=== PATIENT | male | born 1975 | race Two or more races ===

== ENCOUNTER 2022-10-15 20:01 | Emergency (ER) | payer MEDICAID, OTHER ==
[~2022-10-15] VITALS: Ht 170.2 cm; Wt 98.4 kg
[2022-10-15 22:15] VITALS: BP 131/77; PULSE 104; RESP 16; TEMP 97.9; O2SAT 96
[2022-10-15] MEDS ORDERED: HYDROcodone-ACET 5/325MG TAB PO ONE (22:15)
[2022-10-15] MEDS ORDERED: HYDR-4902 PO (22:17)
== END 2022-10-15 23:42 | disposition home or self-care (01) ==
LOC: ER 20:01
DX: S92.355A Nondisplaced fracture of fifth metatarsal bone, left foot, initial encounter for closed fracture (principal); S83.92XA Sprain of unspecified site of left knee, initial encounter; S93.402A Sprain of unspecified ligament of left ankle, initial encounter; S80.12XA Contusion of left lower leg, initial encounter; M77.32 Calcaneal spur, left foot; W11.XXXA Fall on and from ladder, initial encounter; Y93.89 Activity, other specified; Y92.89 Other specified places as the place of occurrence of the external cause; Y99.8 Other external cause status
CPT/HCPCS: 29515; 73590; 73630

== ENCOUNTER 2024-08-18 09:53 | Emergency (ER) | payer MEDICAID ==
[~2024-08-18] VITALS: Ht 170.2 cm; Wt 100.0 kg
[~2024-08-18 09:53] MED LIST: HYDR-4902 PO
--- NOTE | 2024-08-18 10:23 | ED.PDOC ---
History of present illness HPI Comments 48 y.o male presents to the ED for a chief complaint of numbness to bilateral toes that started a couple months ago but now is worsening and radiating to mid foot. Patient does have a history of DM but denies taking any medication. Patient reports checking his blood glucose when he visits his father who has a glucometer and states levels are around the 400-500's. Upon ED arrival, patient's accucheck was 255, which he states is probably because he has not eaten today. Patient also notes increased urination at night with intermittent episodes of a posterior headache. He denies any nausea, vomiting, chest pain, SOB, abdominal pain, or vision changes. Chief Complaint: Lower Extremity Time Seen by MD: 10:09 History of present illness: Nurses Notes, Medications, Allergies Allergies: Coded Allergies: NO KNOWN ALLERGIES (Unverified , 10/15/22) Home Meds Active Scripts Hydrocodone-Acetaminophen (Hydrocodone Bitartrate/AC 5-325 mg) 1 Tab Tab, 1 TAB PO Q6HR, #10 TAB as needed for pain Prov:SARAH JAY [employer] 10/15/22 Information Source: Patient Mode of Arrival: Ambulatory Timing: Months Duration: Since onset [place]: Other History of: Diabetes, Frequent hyperglycemic Modifying factors: Nothing Associated signs and symptoms: Other Past Medical History PAST MEDICAL HISTORY: DM Surgical History: Denies all surgeries Family History Family History: Reviewed,noncontributory to illness Social History Smoker: Non-Smoker Alcohol: Denies ETOH Use Drugs: Denies Drug Use Lives In: Home Constitutional: denies: chills, diaphoresis, fatigue, fever, malaise, sweats, weakness, others EENTM: denies: blurred vision, double vision, ear bleeding, ear discharge, ear drainage, ear pain, ear ringing, eye pain, eye redness, hearing loss, mouth pain, mouth swelling, nasal discharge, nose bleeding, nose congestion, nose pain, photophobia, tearing, throat pain, throat swelling, voice changes, others Respiratory: denies: cough, hemoptysis, orthopnea, SOB at rest, shortness of breath, SOB with excertion, stridor, wheezing, others Cardiovascular: denies: chest pain, dizzy spells, diaphoresis, Dyspnea on exertion, edema, irregular heart beat, left arm pain, lightheadedness, palpi tations, PND, syncope, others Gastrointestinal: denies: abdomen distended, abdominal pain, blood streaked bowels, constipated, diarrhea, dysphagia, difficulty swallowing, hematemesis, melena, nausea, poor appetite, poor fluid intake, rectal bleeding, rectal pain, vomiting, others Genitourinary: denies: burning, dysuria, flank pain, frequency, hematuria, incontinence, penile discharge, penile sore, pain, testicle pain, testicle swelling, urgency, others Neurological: reports: numbness (bilateral toes /feet ); denies: dizziness, fainting, headache, left sided numbness, left sided weakness, paresthesia, pre- existing deficit, right sided numbness, right sided weakness, seizure, speech problems, tingling, tremors, weakness, others Musculoskeletal: denies: back pain, gout, joint pain, joint swelling, muscle pain, muscle stiffness, neck pain, others Integumetry: denies: bruises, change in color, change in hair/nails, dryness, laceration, lesions, lumps, rash, wounds, others Allergic/Immunocompromised: denies: Difficulty Healing, Frequent Infections, Hives, Itching, others Hematologic/Lymphatic: denies: anemia, blood clots, easy bleeding, easy bruising, swollen glands, others Endocrine: reports: excessive urination; denies: excessive hunger, excessive sweating, excessive thirst, flushing, intolerance to cold, intolerance to heat, unexplained weight gain, unexplained weight loss, others Psychiatric: denies: anxiety, bipolar disorder, depression, hopeless, panic disorder, schizophrenia, sleepless, suicidal, others All Other Systems: Reviewed and Negative Physical Exam General Appearance: No Apparent Distress HEENT: Other (Pupils and face symmetric. Moist mucous membranes.) Neck: Full Range of Motion, Normal Inspection Respiratory: Lungs Clear, No Accessory Muscle Use, No Respiratory Distress, Normal Breath Sounds Cardiovascular: No Edema, No JVD, Regular Rate/Rhythm Breast Exam: Deferred Gastrointestinal: Non Tender, Soft Genitalia: Deferred Pelvic: Deferred Rectal: Deferred Extremities: Normal inspection, Normal range of motion, Non-tender, No pedal edema Neurologic: Alert (Oriented x4), Normal Affect, Normal Mood, Other (Ambulatory. Subjective diminished light touch sensation bilateral toes extending to distal foot) Cerebellar Function: NOT DONE Reflexes: NOT DONE Skin: Dry, Normal Color, Warm Lymphatic: NOT DONE Was a procedure done? Was a procedure done?: No Differential Diagnosis (DM) Differential Diagnosis: Dehydration, Electrolyte Abnormality, Hyperglycemia, Hy perosmolar State, UTI Other Differential Diagnosis Neuropathy X-Ray, Labs, Meds, VS Vital Signs Date Time Temp Pulse Resp B/P (MAP) Pulse Ox O2 Delivery O2 Flow Rate FiO2 08/18/24 11:09 98.0 71 13 131/84 (100) 96 98.0 08/18/24 10:56 Room Air* 0 21 08/18/24 10:05 98.0 79 18 144/94 (111) 97 98.0 Lab Test 08/18/24 10:50 08/18/24 10:25 08/18/24 10:04 Range/Units Urine Color Light-yellow Yellow Urine Clarity Clear Clear Urine pH 5.0 5.0-9.0 Urine Specific [place] 1.025 1.001-1.035 Urine Protein Negative Negative Urine Ketones Negative Negative Urine Blood Negative Negative /uL Urine Nitrite Negative Negative Urine Bilirubin Negative Negative Urine Urobilinogen Normal Negative mg/dL Urine Leukocyte Esterase Negative Negative /uL Urine RBC None seen 0 - 3 /hpf Urine Microscopic WBC 1 0-3 /HPF Urine Squamous Epithelial Cells None seen <5 /hpf Urine Bacteria None seen None Seen /hpf Urine Glucose 4+ H Normal mg/dL White Blood Count 4.6 4.4-10.8 10^3/uL Red Blood Count 5.73 4.5-5.90 10^6/uL Hemoglobin 16.3 13.5-17.5 g/dL Hematocrit 47.8 41.0-53.0 % Mean Corpuscular Volume 83.4 80.0-100.0 fL Mean Corpuscular Hemoglobin 28.4 28.0-32.0 pg Mean Corpuscular Hemoglobin Concent 34.1 32.0-36.0 g/dL Red Cell Distribution Width 14.3 11.8-14.3 % Platelet Count 252 140-450 10^3/uL Mean Platelet Volume 8.5 6.9-10.8 fL Neutrophils (%) (Auto) 62.0 37.0-80.0 % Lymphocytes (%) (Auto) 27.2 10.0-50.0 % Monocytes (%) (Auto) 7.9 0.0-12.0 % Eosinophils (%) (Auto) 2.1 0.0-7.0 % Basophils (%) (Auto) 0.8 0.0-2.0 % Neutrophils # (Auto) 2.9 1.6-8.6 10 ^3/uL Lymphocytes # (Auto) 1.3 0.4-5.4 10 ^3/uL Monocytes # (Auto) 0.4 0-1.3 10 ^3/uL Eosinophils # (Auto) 0.1 0-0.8 10 ^3/uL Basophils # (Auto) 0 0-0.2 10 ^3/uL Nucleated Red Blood Cells 0.3 % Sodium Level 141 136-145 mmol/L Potassium Level 4.4 3.5-5.1 mmol/L Chloride Level 106 98-107 mmol/L Carbon Dioxide Level 27 20-31 mmol/L Anion Gap 8 5-15 Blood Urea Nitrogen 7 L 9-23 mg/dL Creatinine 0.87 0.700-1.30 mg/dL Glomerular Filtration Rate Calc 105 >90 mL/min BUN/Creatinine Ratio 8.0 L 10.0-20.0 Serum Glucose 275 H 74-106 mg/dL Calcium Level 9.5 8.7-10.4 mg/dL POC Glucose 255 H 70-106 mg/dl X-Ray, Labs, Meds, VS Comment 48-year-old male with a history of untreated diabetes presenting complaining of bilateral toe numbness times months Vitals remarkable for BP 144/94 Exam unremarkable except for subjective diminished light touch sensation bilateral toes and distal foot Rhythm strip independently interpreted by me: Sinus rhythm, rate 79, no ectopy. CBC basic metabolic panel unremarkable except for glucose 275. UA positive for 4+ glucose. No acute treatment indicated in the ED. Patient advised regarding workup findings, my impression, treatment plan and the need to establish care with a primary physician for ongoing management of his diabetes. Patient will be provided with an outpatient referral. Rx metformin Time of 1ST Reevaluation: 11:00 Reevaluation 1ST: Unchanged Patient Education/Counseling: Diagnosis, Treatment, Prognosis Family Education/Counseling: No Family Present Departure 1 Departure Time of Disposition: 11:39 Impression: Primary Impression: Hyperglycemia due to diabetes mellitus Additional Impression: Diabetic neuropathy Qualified Codes: E13.49 - Other specified diabetes mellitus with other diabetic neurological complication Disposition: HOME / SELF CARE / HOMELESS Condition: Stable Referrals: DAVIE STOKES MD Additional Instructions: Your blood tests showed your blood glucose (blood sugar) is high. Your kidney function is normal, and your other blood tests are normal. Your urine test showed glucose, which is due to uncontrolled blood sugar. I have prescribed medication for diabetes. Follow-up to establish care with a primary physician in 1-2 days for further evaluation of your diabetes. You have been referred to Dr. Stokes. e-Prescriptions Metformin Hydrochloride (Metformin Hcl) 500 Mg Tab 1 TAB PO BID, #60 TAB 3 Refills Prov: SHANDA BOWIE MD 08/18/24 Discharged With: Self Critical Care Note Critical Care Time?: No Stability Stability form required: No I personally scribed for SHANDA BOWIE MD ([email or web address]) on 08/18/24 at 10:23. Electronically submitted by Eneida Booker ([facility]). SHANDA BOWIE MD Aug 18, 2024 10:23
[2024-08-18 10:44] LABS: Chloride 106 mmol/L (98-107); Potassium 4.4 mmol/L (3.5-5.1); Sodium 141 mmol/L (136-145)
[2024-08-18 10:45] LABS: Anion Gap 8 (5-15); Basophils # (auto) 0 10 ^3/uL (0-0.2); Basophils % (auto) 0.8 % (0.0-2.0); Carbon Dioxide 27 mmol/L (20-31); Eosinophils # (auto) 0.1 10 ^3/uL (0-0.8); Eosinophils % (auto) 2.1 % (0.0-7.0); Hematocrit 47.8 % (41.0-53.0); Hemoglobin 16.3 g/dL (13.5-17.5); Lymphocytes # (auto) 1.3 10 ^3/uL (0.4-5.4); Lymphocytes % (auto) 27.2 % (10.0-50.0); Mean Corpuscular Hemoglobin 28.4 pg (28.0-32.0); Mean Corpuscular Hgb Conc. 34.1 g/dL (32.0-36.0); Mean Corpuscular Volume 83.4 fL (80.0-100.0); Monocytes # (auto) 0.4 10 ^3/uL (0-1.3); Monocytes % (auto) 7.9 % (0.0-12.0); Neutrophils # (auto) 2.9 10 ^3/uL (1.6-8.6); Nucleated Red Blood Cells % 0.3 %; Platelet Count (auto) 252 10^3/uL (140-450); Red Blood Cells 5.73 10^6/uL (4.5-5.90); Red Cell Distribution Width 14.3 % (11.8-14.3); White Blood Cell 4.6 10^3/uL (4.4-10.8)
[2024-08-18 10:46] LABS: Calcium 9.5 mg/dL (8.7-10.4)
[2024-08-18 10:50] LABS: Blood Urea Nitrogen 7 mg/dL (9-23); Glucose 275 mg/dL (74-106)
[2024-08-18 11:01] LABS: Urine Bacteria None Seen /hpf (None Seen)
[2024-08-18 11:09] VITALS: BP 131/84; PULSE 71; RESP 13; TEMP 98; O2SAT 96
[2024-08-18 11:13] LABS: Urine Blood Negative /uL (Negative); Urine Clarity Clear (Clear); Urine Color Light-Yellow (Yellow); Urine Protein, UAD Negative (Negative); Urine Specific Gravity 1.025 (1.001-1.035); Urine Squamous Epithelial Cell None Seen /hpf (<5); Urine Urobilinogen Normal (Negative); Urine WBC 1 /HPF (0-3)
[2024-08-18] MEDS ORDERED: METF-370 PO (11:41)
== END 2024-08-18 11:50 | disposition home or self-care (01) ==
LOC: ER 09:53
DX: E11.40 Type 2 diabetes mellitus with diabetic neuropathy, unspecified (principal); E11.65 Type 2 diabetes mellitus with hyperglycemia; Z79.899 Other long term (current) drug therapy
CPT/HCPCS: 36415; 80048; 81001; 82947; 82962; 85025